=== PATIENT | male | born 1990 | race African-American/Black ===

== ENCOUNTER 2021-10-31 17:02 | Emergency (ER) | payer SELFPAY ==
[~2021-10-31] VITALS: Ht 170.2 cm; Wt 85.0 kg
[2021-10-31] MEDS ORDERED: KETOROLAC 60MG/2ML VIAL IM ONE (18:15)
[2021-10-31] MEDS ORDERED: MORPHINE SULFATE 4 MG/ML CPJ (NOT FOR IM USE) IV ONE (18:15)
[2021-10-31] MEDS ORDERED: LIDOCAINE HCL/EPINEPHRINE 1%-EPI 1:100,000 20 ML VIAL INFIL ONE (18:45)
[2021-10-31 18:49] VITALS: BP 136/77
[2021-10-31] MEDS ORDERED: IBUP-2028 MT (20:23)
== END 2021-10-31 20:38 | disposition home or self-care (01) ==
LOC: ER 17:02
DX: S43.084A Other dislocation of right shoulder joint, initial encounter (principal); W18.39XA Other fall on same level, initial encounter; Y93.89 Activity, other specified; Y92.89 Other specified places as the place of occurrence of the external cause; Y99.8 Other external cause status
CPT/HCPCS: 23650; 73030; 96372; 96374; 99284; J1885; J2270; J3490; A4565

== ENCOUNTER 2022-06-22 11:49 | Emergency (ER) | payer SELFPAY ==
[~2022-06-22] VITALS: Ht 170.2 cm; Wt 79.0 kg
[~2022-06-22 11:49] MED LIST: IBUP-2028 MT
[2022-06-22 12:10] VITALS: BP 134/78
[2022-06-22] MEDS ORDERED: TETRACAINE 0.5% OPHTH DROPS 4ML LEFTEYE ONE (13:45)
[2022-06-22] MEDS ORDERED: FLUORESCEIN SODIUM 1MG/STRIP LEFTEYE ONE (13:45)
== END 2022-06-22 14:36 | disposition home or self-care (01) ==
LOC: ER 11:49
DX: S00.412A Abrasion of left ear, initial encounter (principal); M25.511 Pain in right shoulder; X58.XXXA Exposure to other specified factors, initial encounter; Y93.89 Activity, other specified; Y92.89 Other specified places as the place of occurrence of the external cause
CPT/HCPCS: 99283

== ENCOUNTER 2022-08-31 10:22 | Emergency (ER) | payer OTHER ==
[~2022-08-31] VITALS: Ht 172.7 cm; Wt 78.0 kg
[2022-08-31 11:56] VITALS: BP 141/81
[2022-08-31] MEDS: IBUPROFEN 600MG TABLET PO ONE (11:56)
[2022-08-31] MEDS ORDERED: IBUP-2029 MT (12:32)
== END 2022-08-31 13:05 | disposition home or self-care (01) ==
LOC: ER 10:22
DX: M25.521 Pain in right elbow (principal); Z00.00 Encounter for general adult medical examination without abnormal findings; W18.39XA Other fall on same level, initial encounter; Y93.89 Activity, other specified; Y92.89 Other specified places as the place of occurrence of the external cause; Y99.8 Other external cause status
CPT/HCPCS: 73080; 73110; 99284; A4565